=== PATIENT | female | born 1935 | race Caucasian/White ===

== ENCOUNTER → 2016-04-25 | Outpatient (CLI) | payer OTHER ==
[~2016-04-25] MED LIST: ATOR20TA PO; LEVO112T35 PO; LISI-275 PO
== END | disposition home or self-care (01) ==
LOC: LAB 09:52
PROVIDERS: ATTEND Internal Medicine
DX: E05.90 Thyrotoxicosis, unspecified without thyrotoxic crisis or storm (principal)
CPT/HCPCS: 36415; 84443

== ENCOUNTER → 2016-05-18 | Day surgery (SDC) | payer OTHER ==
[2016-05-15 13:16] LABS: Basophils # (auto) 0 uL; Basophils % (auto) 0.3 % (0.0-2.0); Eosinophils # (auto) 0.1 uL; Eosinophils % (auto) 1.1 % (0.0-7.0); Hematocrit 43.1 % (36.0-46.0); Hemoglobin 13.9 g/dL (12.2-16.2); Lymphocytes # (auto) 2.4 uL; Lymphocytes % (auto) 29.6 % (10.0-50.0); Mean Corpuscular Hemoglobin 29.8 pg (28.0-32.0); Mean Corpuscular Hgb Conc. 32.3 g/dL (32.0-36.0); Mean Corpuscular Volume 92.1 fL (80.0-100.0); Mean Platelet Volume 9.1 fL (7.4-10.4); Monocytes # (auto) 0.8 uL; Monocytes % (auto) 9.8 % (0.0-12.0); Neutrophils # (auto) 4.8 uL; Neutrophils % (auto) 59.2 % (37.0-80.0); Platelet Count (auto) 342 10^3/uL (140-450); Red Cell Distribution Width 12.9 % (11.6-16.0); White Blood Cell 8.1 10^3/uL (4.4-10.8)
[2016-05-15 13:34] LABS: INR 1.02 (0.9-1.15); Partial Thromboplastin Time 27.1 sec (22.64-33.71); Prothrombin Time 10.5 sec (9.37-12.3)
[~2016-05-18] VITALS: Ht 162.6 cm; Wt 59.9 kg
[~2016-05-18] MED LIST changes: +ALEN70TA56 OR; -LEVO112T35 PO; +LEVO88TA36 PO; +LIOT5TAB9 PO; +SODIUM CHLORIDE LOCK 10 ML ONE; +diphenhdrAMINE HCL 50 MG/1 ML VL ONE
[2016-05-18] MEDS: MIDAZOLAM HCL 5 MG/ML-1ML VIAL ONE ×4 (10:02→10:12)
[2016-05-18] MEDS: fentaNYL CITRATE 100 MCG/2 ML VL ONE ×4 (10:02→10:12)
[2016-05-18 11:00] VITALS: BP 138/67
== END | disposition home or self-care (01) ==
LOC: GI 08:20
PROVIDERS: ATTEND Internal Medicine Gastroenterology
DX: Z12.11 Encounter for screening for malignant neoplasm of colon (principal); K57.30 Diverticulosis of large intestine without perforation or abscess without bleeding; I20.9 Angina pectoris, unspecified; D21.9 Benign neoplasm of connective and other soft tissue, unspecified; F41.9 Anxiety disorder, unspecified; F32.9 Major depressive disorder, single episode, unspecified
CPT/HCPCS: 36415; 45378; 85025; 85049; 85610; 85730; J1200; J2250; J3010

== ENCOUNTER → 2016-06-06 | Outpatient (CLI) | payer OTHER ==
[~2016-06-06] VITALS: Ht 162.6 cm; Wt 59.0 kg
[~2016-06-06] MED LIST changes: +ADENOSINE 50 MG in GIVE UN-DILUTED 0 ML IV ONE; -SODIUM CHLORIDE LOCK 10 ML ONE; -diphenhdrAMINE HCL 50 MG/1 ML VL ONE
== END | disposition home or self-care (01) ==
LOC: XY 08:12
PROVIDERS: ATTEND Internal Medicine Cardiovascular Disease
DX: Z01.818 Encounter for other preprocedural examination (principal); I34.2 Nonrheumatic mitral (valve) stenosis; I35.0 Nonrheumatic aortic (valve) stenosis; I31.3 Pericardial effusion (noninflammatory); I27.0 Primary pulmonary hypertension; I07.1 Rheumatic tricuspid insufficiency
CPT/HCPCS: 78452; 93017; 93306; A9500; J0153

== ENCOUNTER 2016-08-29 06:10 | Inpatient (IN) | payer OTHER ==
[2016-08-24 14:19] LABS: Basophils # (auto) 0 uL; Basophils % (auto) 0.4 % (0.0-2.0); Eosinophils # (auto) 0.1 uL; Eosinophils % (auto) 0.7 % (0.0-7.0); Hematocrit 41.8 % (36.0-46.0); Hemoglobin 13.6 g/dL (12.2-16.2); Lymphocytes # (auto) 2.4 uL; Lymphocytes % (auto) 27.8 % (10.0-50.0); Mean Corpuscular Hemoglobin 29.9 pg (28.0-32.0); Mean Corpuscular Hgb Conc. 32.6 g/dL (32.0-36.0); Mean Corpuscular Volume 91.7 fL (80.0-100.0); Mean Platelet Volume 8.8 fL (7.4-10.4); Monocytes # (auto) 0.7 uL; Monocytes % (auto) 7.6 % (0.0-12.0); Neutrophils # (auto) 5.5 uL; Neutrophils % (auto) 63.5 % (37.0-80.0); Platelet Count (auto) 303 10^3/uL (140-450); Red Cell Distribution Width 13.6 % (11.6-16.0); White Blood Cell 8.7 10^3/uL (4.4-10.8)
[2016-08-24 14:29] LABS: Urine Bilirubin Negative (Negative); Urine Blood Negative /uL (Negative); Urine Color Yellow (Yellow); Urine Glucose Normal (Normal); Urine Ketone Negative (Negative); Urine Mucus FEW (None Seen); Urine Nitrite Negative (Negative); Urine RBC 1 /hpf (0 - 4); Urine Squamous Epithelial Cell FEW /hpf (<5); Urine pH 5.5 (5.0-8.0)
[2016-08-24 14:41] LABS: INR 0.94 (0.9-1.15); Partial Thromboplastin Time 26.3 sec (22.64-33.71); Prothrombin Time 10.2 sec (9.37-12.3)
[2016-08-24 14:50] LABS: Albumin 3.3 g/dL (3.4-5.0); BUN/Creatinine Ratio 19.7; Bilirubin, Total 0.4 mg/dL (0.2-1.0); Calcium 8.9 mg/dL (8.5-10.1); Potassium 3.8 mmol/L (3.5-5.1); Total Protein 6.9 g/dL (6.4-8.2)
[~2016-08-29] VITALS: Ht 162.6 cm; Wt 152.8 kg
[~2016-08-29 06:10] MED LIST changes: -ADENOSINE 50 MG in GIVE UN-DILUTED 0 ML IV ONE; -ALEN70TA56 OR
[2016-08-29] MEDS ORDERED: ceFAZolin 1GM/50ML D5W 100 ML IV ONE (06:23)
[2016-08-29] MEDS ORDERED: TETRACAINE 1% INJ 2 ML VIAL IJ ONE (07:11)
[2016-08-29] MEDS ORDERED: MORPHINE SULF(PF) 0.5MG/ML 10ML VIAL ONE (07:22)
[2016-08-29] MEDS ORDERED: fentaNYL CITRATE 100 MCG/2 ML VL ONE (07:23)
[2016-08-29] MEDS ORDERED: MIDAZOLAM HCL 1MG/1ML-2 ML VIAL ONE ×2 (07:23→08:37)
[2016-08-29] MEDS ORDERED: DEXAMETHASONE SOD PHOS 10MG/1ML VIAL INJ IV PRN (08:00)
[2016-08-29] MEDS ORDERED: NALOXONE HCL 0.4 MG/ML VIAL IV PRN (08:00)
[2016-08-29] MEDS ORDERED: KETOROLAC TROMETH 30 MG/ML 1ML VIAL IV PRN (08:00)
[2016-08-29] MEDS ORDERED: LABETALOL HCL 5 MG/ML 4ML SYRINGE IV PRN (08:00)
[2016-08-29] MEDS ORDERED: HYDROmorphone HCL 2 MG/ML VL IV PRN ×2 (08:00)
[2016-08-29] MEDS ORDERED: MIDAZOLAM HCL 1MG/1ML-2 ML VIAL IV PRN (08:00)
[2016-08-29] MEDS ORDERED: ePHEDrine SULFATE 50 MG/ML AMP IV PRN (08:00)
[2016-08-29] MEDS ORDERED: KETOROLAC TROMETH 30 MG/ML 1ML VIAL IV ONE (08:00)
[2016-08-29] MEDS ORDERED: diphenhdrAMINE HCL 50 MG/1 ML VL IV PRN (08:00)
[2016-08-29] MEDS ORDERED: NALBUPHINE HCL 10 MG/1ml INJECTION SUBCUT ONE (08:00)
[2016-08-29] MEDS ORDERED: MORPHINE SULF INJ 2 MG/ML SYRINGE 1ML IV PRN ×2 (08:00→10:30)
[2016-08-29] MEDS ORDERED: PROPOFOL 10 MG/ML 20 ML IV ONE (08:15)
[2016-08-29] MEDS ORDERED: diphenhdrAMINE HCL 50 MG/1 ML VL ONE (09:02)
[2016-08-29] MEDS ORDERED: PHENYLEPHRINE HCL 10 MG/ML VL ONE (09:02)
[2016-08-29] MEDS ORDERED: ACETAMINOPHEN 325 MG TAB PO PRN (10:30)
[2016-08-29] MEDS ORDERED: NITROGLYCERIN 0.4 MG SL TAB SL PRN (10:30)
[2016-08-29] MEDS ORDERED: TEMAZEPAM 15 MG CAP PO PRN (10:30)
[2016-08-29] MEDS: oxyCODONE ER 10 MG TAB PO SCH ×2 (11:00→21:56)
[2016-08-29] MEDS: LACTATED RINGER'S 1,000 ML IV SCH (11:45)
[2016-08-29] MEDS: ceFAZolin 1GM/50ML D5W 50 ML IV SCH ×2 (11:48→17:09)
[2016-08-29 12:20] VITALS: BP 107/49
[2016-08-29 12:30] VITALS: BP 107/49
[2016-08-29] MEDS: DOCUSATE SOD 100 MG CAP PO SCH ×2 (12:58→21:56)
[2016-08-29] MEDS: SODIUM CHLOR 0.9% PF (SALINE LOCK) 10ML VIAL IV SCH ×2 (12:59→21:45)
[2016-08-29 16:57] VITALS: BP 114/62
[2016-08-29] MEDS: HYDROmorphone HCL 2 MG/ML VL IV PRN (17:08)
[2016-08-29 21:43] VITALS: BP 135/71
[2016-08-30] VITALS (7 sets, daily range): BP systolic 104–122; BP diastolic 44–68
[2016-08-30] MEDS: ceFAZolin 1GM/50ML D5W 50 ML IV SCH (02:10)
[2016-08-30] MEDS: SODIUM CHLOR 0.9% PF (SALINE LOCK) 10ML VIAL IV SCH ×3 (05:36→21:45)
[2016-08-30] MEDS: LACTATED RINGER'S 1,000 ML IV SCH (05:50)
[2016-08-30 08:20] LABS: Hematocrit 32.8 % (36.0-46.0); Hemoglobin 11.1 g/dL (12.2-16.2)
[2016-08-30] MEDS: HYDROmorphone HCL 2 MG/ML VL IV PRN ×3 (09:02→19:57)
[2016-08-30] MEDS: ENOXAPARIN SOD 40 MG/0.4 ML SYRINGE SC SCH (09:05)
[2016-08-30] MEDS: DOCUSATE SOD 100 MG CAP PO SCH ×2 (09:05→21:45)
[2016-08-30] MEDS: oxyCODONE ER 10 MG TAB PO SCH ×2 (10:05→21:49)
[2016-08-30] MEDS: ONDANSETRON HCL 4 MG/2 ML VIAL IV PRN ×2 (11:01→16:23)
[2016-08-30] MEDS ORDERED: LISINOPRIL 5 MG TAB PO ONE (12:15)
[2016-08-30] MEDS ORDERED: LEVOTHYROXINE SODIUM 88 MCG TAB PO ONE (12:15)
[2016-08-31] MEDS: LACTATED RINGER'S 1,000 ML IV SCH ×2 (02:19→13:56)
[2016-08-31] MEDS: ONDANSETRON HCL 4 MG/2 ML VIAL IV PRN ×4 (03:28→21:03)
[2016-08-31] MEDS: HYDROmorphone HCL 2 MG/ML VL IV PRN ×2 (03:28→10:01)
[2016-08-31 05:00] VITALS: BP 97/52
[2016-08-31] MEDS: SODIUM CHLOR 0.9% PF (SALINE LOCK) 10ML VIAL IV SCH ×3 (06:28→20:59)
[2016-08-31] MEDS: LEVOTHYROXINE SODIUM 88 MCG TAB PO SCH (06:46)
[2016-08-31 07:26] LABS: Hematocrit 30.5 % (36.0-46.0); Hemoglobin 10.2 g/dL (12.2-16.2)
[2016-08-31 08:31] VITALS: BP 106/59
[2016-08-31] MEDS: LISINOPRIL 5 MG TAB PO SCH (11:31)
[2016-08-31] MEDS: oxyCODONE ER 10 MG TAB PO SCH ×2 (11:32→21:03)
[2016-08-31] MEDS: DOCUSATE SOD 100 MG CAP PO SCH ×2 (11:32→21:00)
[2016-08-31] MEDS: ENOXAPARIN SOD 40 MG/0.4 ML SYRINGE SC SCH (11:33)
[2016-08-31 12:46] VITALS: BP 109/57
[2016-08-31 16:52] VITALS: BP 118/52
[2016-08-31 20:00] VITALS: BP 111/55
[2016-08-31 22:00] VITALS: BP 111/55
[2016-09-01] MEDS: ONDANSETRON HCL 4 MG/2 ML VIAL IV PRN ×3 (05:07→21:15)
[2016-09-01] MEDS: SODIUM CHLOR 0.9% PF (SALINE LOCK) 10ML VIAL IV SCH ×3 (05:07→21:14)
[2016-09-01] MEDS: HYDROmorphone HCL 2 MG/ML VL IV PRN ×2 (05:08→19:46)
[2016-09-01 05:30] VITALS: BP 113/59
[2016-09-01] MEDS: LEVOTHYROXINE SODIUM 88 MCG TAB PO SCH (06:55)
[2016-09-01 08:12] LABS: Hematocrit 32.4 % (36.0-46.0); Hemoglobin 10.9 g/dL (12.2-16.2)
[2016-09-01 08:45] VITALS: BP 94/38
[2016-09-01] MEDS: oxyCODONE ER 10 MG TAB PO SCH ×2 (09:48→21:15)
[2016-09-01] MEDS: DOCUSATE SOD 100 MG CAP PO SCH ×2 (09:49→21:15)
[2016-09-01] MEDS: ENOXAPARIN SOD 40 MG/0.4 ML SYRINGE SC SCH (09:49)
[2016-09-01] MEDS: LISINOPRIL 5 MG TAB PO SCH (09:53)
[2016-09-01] MEDS: LACTATED RINGER'S 1,000 ML IV SCH (14:13)
[2016-09-01 17:04] VITALS: BP 111/55
[2016-09-01 20:00] VITALS: BP 142/70
[2016-09-01 22:00] VITALS: BP 142/70
[2016-09-02] VITALS (7 sets, daily range): BP systolic 106–132; BP diastolic 52–73
[2016-09-02] MEDS: HYDROmorphone HCL 2 MG/ML VL IV PRN (05:37)
[2016-09-02] MEDS: LEVOTHYROXINE SODIUM 88 MCG TAB PO SCH (06:00)
[2016-09-02] MEDS: SODIUM CHLOR 0.9% PF (SALINE LOCK) 10ML VIAL IV SCH ×3 (06:00→21:59)
[2016-09-02 07:27] LABS: Hematocrit 30.1 % (36.0-46.0); Hemoglobin 10.1 g/dL (12.2-16.2)
[2016-09-02] MEDS: DOCUSATE SOD 100 MG CAP PO SCH ×2 (09:45→21:59)
[2016-09-02] MEDS: oxyCODONE ER 10 MG TAB PO SCH ×2 (09:45→21:59)
[2016-09-02] MEDS: ENOXAPARIN SOD 40 MG/0.4 ML SYRINGE SC SCH (09:45)
[2016-09-02] MEDS: LISINOPRIL 5 MG TAB PO SCH (09:46)
[2016-09-02] MEDS ORDERED: BISACODYL 5 MG EC TAB PO ONE (12:00)
[2016-09-02] MEDS: LACTULOSE 20Gm/30ML SOLN PO SCH ×2 (18:23→23:34)
[2016-09-02] MEDS: HYDROcodone-ACET 10/325MG TAB PO PRN (21:00)
[2016-09-03] VITALS (7 sets, daily range): BP systolic 99–134; BP diastolic 58–75
[2016-09-03] MEDS: LACTULOSE 20Gm/30ML SOLN PO SCH ×3 (06:00→18:00)
[2016-09-03] MEDS: LEVOTHYROXINE SODIUM 88 MCG TAB PO SCH (06:55)
[2016-09-03] MEDS: SODIUM CHLOR 0.9% PF (SALINE LOCK) 10ML VIAL IV SCH ×3 (06:55→22:32)
[2016-09-03] MEDS: ENOXAPARIN SOD 40 MG/0.4 ML SYRINGE SC SCH (09:28)
[2016-09-03] MEDS: oxyCODONE ER 10 MG TAB PO SCH ×2 (09:28→22:00)
[2016-09-03] MEDS: DOCUSATE SOD 100 MG CAP PO SCH ×2 (09:29→22:32)
[2016-09-03] MEDS: LISINOPRIL 5 MG TAB PO SCH (09:29)
[2016-09-03] MEDS: HYDROcodone-ACET 10/325MG TAB PO PRN (20:32)
[2016-09-04 05:00] VITALS: BP 135/72
[2016-09-04] MEDS: SODIUM CHLOR 0.9% PF (SALINE LOCK) 10ML VIAL IV SCH ×2 (05:43→14:24)
[2016-09-04] MEDS: LACTULOSE 20Gm/30ML SOLN PO SCH ×4 (05:43→18:00)
[2016-09-04] MEDS: LEVOTHYROXINE SODIUM 88 MCG TAB PO SCH (06:16)
[2016-09-04 08:00] VITALS: BP 156/80
[2016-09-04 08:23] VITALS: BP 156/80
[2016-09-04] MEDS: oxyCODONE ER 10 MG TAB PO SCH (10:33)
[2016-09-04] MEDS: DOCUSATE SOD 100 MG CAP PO SCH (10:33)
[2016-09-04] MEDS: LISINOPRIL 5 MG TAB PO SCH (10:33)
[2016-09-04] MEDS: ENOXAPARIN SOD 40 MG/0.4 ML SYRINGE SC SCH (10:33)
[2016-09-04 13:00] VITALS: BP 118/48
[2016-09-04 13:28] VITALS: BP 118/98
[2016-09-04] MEDS: HYDROcodone-ACET 10/325MG TAB PO PRN (15:35)
[2016-09-04] MEDS ORDERED: CALCIUM W/VIT D (600MG/400IU) TAB PO SCH (18:00)
== END 2016-09-04 19:30 | DRG 470 ==
LOC: SUR 06:10 → CENTRAL 06:11 → TELE-CENTR 12:36
PROVIDERS: ADMIT Orthopaedic Surgery; ATTEND Internal Medicine
PROC: 0MBL0ZZ Excision of Right Hip Bursa and Ligament, Open Approach (ICD-10-PCS; 2016-08-29)
PROC: 0SR90JA Replacement of Right Hip Joint with Synthetic Substitute, Uncemented, Open Approach (ICD-10-PCS; principal; 2016-08-29 07:47)
DX: M16.11 Unilateral primary osteoarthritis, right hip (principal); I10 Essential (primary) hypertension; E78.5 Hyperlipidemia, unspecified; M48.00 Spinal stenosis, site unspecified; E03.9 Hypothyroidism, unspecified; M81.0 Age-related osteoporosis without current pathological fracture; M70.71 Other bursitis of hip, right hip; Y93.89 Activity, other specified; Z90.89 Acquired absence of other organs
CPT/HCPCS: 36415; 73501; 80053; 81001; 85014; 85018; 85025; 85610; 85730; 86850; 86900; 86901; 97110; 97116; 97530; J0690; J2250; J2405; J2704

== ENCOUNTER → 2016-10-23 | Outpatient (CLI) | payer OTHER ==
[2016-10-23 07:51] LABS: Basophils # (auto) 0 uL; Basophils % (auto) 0.5 % (0.0-2.0); CONDITION Y; Eosinophils # (auto) 0.1 uL; Hematocrit 41.5 % (36.0-46.0); Hemoglobin 13.9 g/dL (12.2-16.2); Lymphocytes # (auto) 2.7 uL; Lymphocytes % (auto) 37.6 % (10.0-50.0); Mean Corpuscular Hemoglobin 30.7 pg (28.0-32.0); Mean Corpuscular Hgb Conc. 33.4 g/dL (32.0-36.0); Mean Corpuscular Volume 91.9 fL (80.0-100.0); Mean Platelet Volume 8.4 fL (7.4-10.4); Monocytes # (auto) 0.7 uL; Monocytes % (auto) 9.8 % (0.0-12.0); Neutrophils # (auto) 3.6 uL; Neutrophils % (auto) 50.1 % (37.0-80.0); Platelet Count (auto) 383 10^3/uL (140-450); Red Cell Distribution Width 13.9 % (11.6-16.0); White Blood Cell 7.2 10^3/uL (4.4-10.8)
[2016-10-23 07:57] LABS: Urine Bilirubin Negative (Negative); Urine Blood Negative /uL (Negative); Urine Color Yellow (Yellow); Urine Glucose Normal (Normal); Urine Ketone Negative (Negative); Urine Nitrite Negative (Negative); Urine RBC 1 /hpf (0 - 4); Urine Squamous Epithelial Cell FEW /hpf (<5); Urine Urobilinogen Normal (Negative)
[2016-10-23 08:29] LABS: Albumin 3.5 g/dL (3.4-5.0); BUN/Creatinine Ratio 17.1; Bilirubin, Total 0.4 mg/dL (0.2-1.0); Total Protein 6.7 g/dL (6.4-8.2)
== END | disposition home or self-care (01) ==
LOC: LAB 06:42
PROVIDERS: ATTEND Internal Medicine
DX: G03.9 Meningitis, unspecified (principal); I10 Essential (primary) hypertension; E78.4 Other hyperlipidemia; E55.9 Vitamin D deficiency, unspecified
CPT/HCPCS: 36415; 80053; 80061; 81001; 82306; 83036; 84439; 84443; 84481; 85025

== ENCOUNTER → 2017-05-24 | Outpatient (CLI) | payer OTHER ==
[2017-05-24 08:01] LABS: Basophils # (auto) 0 uL; Basophils % (auto) 0.4 % (0.0-2.0); Eosinophils # (auto) 0.1 uL; Eosinophils % (auto) 1.9 % (0.0-7.0); Hematocrit 42.9 % (36.0-46.0); Hemoglobin 14.3 g/dL (12.2-16.2); Lymphocytes # (auto) 2.1 uL; Mean Corpuscular Hemoglobin 30.6 pg (28.0-32.0); Mean Corpuscular Hgb Conc. 33.3 g/dL (32.0-36.0); Monocytes # (auto) 0.6 uL; Monocytes % (auto) 10.2 % (0.0-12.0); Neutrophils # (auto) 3.2 uL; Neutrophils % (auto) 52.5 % (37.0-80.0); Nucleated Red Blood Cells % 0.1 %; Platelet Count (auto) 303 10^3/uL (140-450); Red Blood Cells 4.66 10^6/uL (4.0-5.20); Red Cell Distribution Width 13.8 % (11.8-14.3); White Blood Cell 6.1 10^3/uL (4.4-10.8)
[2017-05-24 08:21] LABS: Albumin 3.5 g/dL (3.4-5.0); BUN/Creatinine Ratio 13.9; Bilirubin, Total 0.4 mg/dL (0.2-1.0); Calcium 9.2 mg/dL (8.5-10.1); Potassium 4.1 mmol/L (3.5-5.1); Total Protein 7.2 g/dL (6.4-8.2)
[2017-05-24 08:22] LABS: Free T4 (Free Thyroxine) 1.27 ng/dL (0.89-1.76)
[2017-05-24 08:23] LABS: T3 Total 1.34 ng/mL (0.60-1.81)
== END | disposition home or self-care (01) ==
LOC: LAB 06:37
PROVIDERS: ATTEND Physician Assistant
DX: I10 Essential (primary) hypertension (principal); E03.9 Hypothyroidism, unspecified; M81.0 Age-related osteoporosis without current pathological fracture; E78.5 Hyperlipidemia, unspecified
CPT/HCPCS: 36415; 80053; 80061; 84439; 84443; 84480; 85025

== ENCOUNTER → 2017-06-19 | Outpatient (CLI) | payer OTHER ==
[2017-06-19 09:18] LABS: Urine WBC None Seen /hpf (0 - 5)
[2017-06-19 09:31] LABS: Basophils # (auto) 0 uL; Basophils % (auto) 0.5 % (0.0-2.0); Eosinophils # (auto) 0.1 uL; Eosinophils % (auto) 1.6 % (0.0-7.0); Lymphocytes # (auto) 2.1 uL; Lymphocytes % (auto) 33.9 % (10.0-50.0); Mean Corpuscular Hemoglobin 30.8 pg (28.0-32.0); Mean Corpuscular Hgb Conc. 33.4 g/dL (32.0-36.0); Mean Corpuscular Volume 92.2 fL (80.0-100.0); Monocytes # (auto) 0.8 uL; Neutrophils # (auto) 3.3 uL; Platelet Count (auto) 306 10^3/uL (140-450); Red Blood Cells 4.88 10^6/uL (4.0-5.20); Red Cell Distribution Width 13.2 % (11.8-14.3); White Blood Cell 6.3 10^3/uL (4.4-10.8)
[2017-06-19 09:33] LABS: Urine Bacteria NONE SEEN /hpf (None Seen); Urine Blood Negative /uL (Negative); Urine Specific Gravity 1.007 (1.001-1.035)
[2017-06-19 09:34] LABS: INR 0.92 (0.9-1.15); Partial Thromboplastin Time 26.4 sec (22.64-33.71)
[2017-06-19 11:25] LABS: Albumin 3.5 g/dL (3.4-5.0); BUN/Creatinine Ratio 14.3; Bilirubin, Total 0.5 mg/dL (0.2-1.0); Potassium 4.4 mmol/L (3.5-5.1); Total Protein 7.4 g/dL (6.4-8.2)
== END | disposition home or self-care (01) ==
LOC: LAB 08:11
DX: H25.12 Age-related nuclear cataract, left eye (principal)
CPT/HCPCS: 36415; 80053; 81001; 85025; 85610; 85730

== ENCOUNTER 2017-09-18 06:17 | Inpatient (IN) | payer OTHER ==
[2017-09-14 14:08] LABS: Basophils # (auto) 0 uL; Basophils % (auto) 0.3 % (0.0-2.0); Eosinophils # (auto) 0.1 uL; Eosinophils % (auto) 1.1 % (0.0-7.0); Hematocrit 43.1 % (36.0-46.0); Hemoglobin 14.3 g/dL (12.2-16.2); Lymphocytes # (auto) 2.4 uL; Lymphocytes % (auto) 29.7 % (10.0-50.0); Mean Corpuscular Hemoglobin 30.5 pg (28.0-32.0); Mean Corpuscular Hgb Conc. 33.1 g/dL (32.0-36.0); Mean Corpuscular Volume 92.2 fL (80.0-100.0); Monocytes # (auto) 0.7 uL; Monocytes % (auto) 8.5 % (0.0-12.0); Neutrophils # (auto) 4.9 uL; Neutrophils % (auto) 60.4 % (37.0-80.0); Nucleated Red Blood Cells % 0.1 %; Platelet Count (auto) 308 10^3/uL (140-450); Red Blood Cells 4.68 10^6/uL (4.0-5.20); Red Cell Distribution Width 12.7 % (11.8-14.3); White Blood Cell 8.2 10^3/uL (4.4-10.8)
[2017-09-14 14:17] LABS: Urine Bacteria NONE SEEN /hpf (None Seen); Urine Blood Negative /uL (Negative); Urine Specific Gravity 1.007 (1.001-1.035); Urine WBC 1 /hpf (0 - 5)
[2017-09-14 14:21] LABS: INR 0.93 (0.9-1.15); Partial Thromboplastin Time 26.4 sec (23.78-33.04)
[2017-09-14 14:25] LABS: Albumin 3.6 g/dL (3.4-5.0); Bilirubin, Total 0.3 mg/dL (0.2-1.0); Calcium 9.3 mg/dL (8.5-10.1); Potassium 4.4 mmol/L (3.5-5.1); Total Protein 7.2 g/dL (6.4-8.2)
[~2017-09-18] VITALS: Ht 162.6 cm; Wt 72.4 kg
[2017-09-18] MEDS ORDERED: TETRACAINE 1% INJ 2 ML VIAL IJ ONE (07:14)
[2017-09-18] MEDS ORDERED: fentaNYL CITRATE 100 MCG/2 ML VL ONE (07:28)
[2017-09-18] MEDS ORDERED: MORPHINE SULF(PF) 0.5MG/ML 10ML VIAL ONE (07:28)
[2017-09-18] MEDS ORDERED: MIDAZOLAM HCL 1MG/1ML-2 ML VIAL ONE ×2 (07:28→07:50)
[2017-09-18] MEDS ORDERED: ceFAZolin 1GM/100ML 200 ML IV ONE (07:29)
[2017-09-18] MEDS ORDERED: PROPOFOL 10 MG/ML 20 ML IV ONE (07:50)
[2017-09-18] MEDS ORDERED: DEXAMETHASONE SOD PHOS 10MG/1ML VIAL INJ ONE (07:50)
[2017-09-18] MEDS ORDERED: MORPHINE SULFATE 8mg/ml INJ SDV IV PRN ×2 (08:30→11:00)
[2017-09-18] MEDS ORDERED: NALBUPHINE HCL 10 MG/1ml INJECTION SUBCUT ONE (08:30)
[2017-09-18] MEDS ORDERED: KETOROLAC TROMETH 30 MG/ML 1ML VIAL IV ONE (08:30)
[2017-09-18] MEDS ORDERED: HYDROmorphone HCL 2 MG/ML VL IV PRN ×2 (08:30)
[2017-09-18] MEDS ORDERED: MIDAZOLAM HCL 1MG/1ML-2 ML VIAL IV PRN (08:30)
[2017-09-18] MEDS ORDERED: diphenhdrAMINE HCL 50 MG/1 ML VL IV PRN (08:30)
[2017-09-18] MEDS ORDERED: NALOXONE HCL 0.4 MG/ML VIAL IV PRN (08:30)
[2017-09-18] MEDS ORDERED: ePHEDrine SULFATE 50 MG/ML AMP IV PRN (08:30)
[2017-09-18] MEDS ORDERED: DEXAMETHASONE SOD PHOS 10MG/1ML VIAL INJ IV PRN (08:30)
[2017-09-18] MEDS ORDERED: KETOROLAC TROMETH 30 MG/ML 1ML VIAL IV PRN (08:30)
[2017-09-18] MEDS ORDERED: LABETALOL HCL 5 MG/ML 4ML SYRINGE IV PRN (08:30)
[2017-09-18] MEDS ORDERED: PHENYLEPHRINE HCL 10 MG/ML VL ONE (08:31)
[2017-09-18] MEDS ORDERED: MORPHINE SULFATE 8mg/ml INJ SDV IV ONE (10:00)
[2017-09-18] MEDS ORDERED: NITROGLYCERIN 0.4 MG SL TAB SL PRN (11:00)
[2017-09-18 13:00] VITALS: BP 95/47
[2017-09-18] MEDS: ceFAZolin 1GM/100ML 50 ML IV SCH ×3 (13:21→23:35)
[2017-09-18 17:33] VITALS: BP 120/65
[2017-09-18] MEDS ORDERED: LISINOPRIL 5 MG TAB PO ONE (18:30)
[2017-09-18] MEDS: LACTATED RINGER'S 1,000 ML IV SCH (18:35)
[2017-09-18] MEDS: SODIUM CHLOR 0.9% PF (SALINE LOCK) 10ML VIAL/SYR IV SCH ×2 (18:40→21:50)
[2017-09-18] MEDS: oxyCODONE ER 10 MG TAB PO SCH (21:49)
[2017-09-18] MEDS: DOCUSATE SOD 100 MG CAP PO SCH (21:49)
[2017-09-18 22:00] VITALS: BP 115/75
[2017-09-18] MEDS: ACETAMINOPHEN 325 MG TAB PO PRN (22:53)
[2017-09-19] MEDS: TEMAZEPAM 15 MG CAP PO PRN (00:45)
[2017-09-19 04:00] VITALS: BP 122/73
[2017-09-19] MEDS: SODIUM CHLOR 0.9% PF (SALINE LOCK) 10ML VIAL/SYR IV SCH ×3 (06:01→21:55)
[2017-09-19] MEDS: LEVOTHYROXINE SODIUM 88 MCG TAB PO SCH (06:02)
[2017-09-19 06:21] LABS: Hematocrit 33.2 % (36.0-46.0); Hemoglobin 11.1 g/dL (12.2-16.2)
[2017-09-19] MEDS: LACTATED RINGER'S 1,000 ML IV SCH (06:50)
[2017-09-19 08:00] VITALS: BP 111/63
[2017-09-19 09:00] VITALS: BP 111/63
[2017-09-19] MEDS ORDERED: ONDANSETRON ODT 4 MG TAB PO PRN (09:15)
[2017-09-19] MEDS ORDERED: ONDANSETRON HCL 4 MG/2 ML VIAL IV PRN (09:15)
[2017-09-19] MEDS: DOCUSATE SOD 100 MG CAP PO SCH ×2 (09:23→21:56)
[2017-09-19] MEDS: oxyCODONE ER 10 MG TAB PO SCH ×2 (09:23→21:56)
[2017-09-19] MEDS: LISINOPRIL 5 MG TAB PO SCH (09:23)
[2017-09-19] MEDS: ENOXAPARIN SOD 60 MG/0.6 ML SYRINGE SC SCH (09:24)
[2017-09-19] MEDS: HYDROmorphone HCL 2 MG/ML VL IV PRN ×2 (11:18→15:09)
[2017-09-19 13:00] VITALS: BP 105/55
[2017-09-19 18:01] VITALS: BP 118/64
[2017-09-19] MEDS ORDERED: FAMOTIDINE (10MG/ML) 2ML VL IV ONE (18:30)
[2017-09-19] MEDS: ONDANSETRON HCL 4 MG/2 ML VIAL IV PRN (19:14)
[2017-09-19] MEDS: FAMOTIDINE (10MG/ML) 2ML VL IV SCH (21:55)
[2017-09-19 22:00] VITALS: BP 114/54
[2017-09-19] MEDS: HYDROcodone-ACET 10/325MG TAB PO PRN (23:44)
[2017-09-20] MEDS: LACTATED RINGER'S 1,000 ML IV SCH (02:50)
[2017-09-20 05:00] VITALS: BP 109/83
[2017-09-20] MEDS: LEVOTHYROXINE SODIUM 88 MCG TAB PO SCH (06:03)
[2017-09-20] MEDS: SODIUM CHLOR 0.9% PF (SALINE LOCK) 10ML VIAL/SYR IV SCH ×3 (06:03→21:40)
[2017-09-20 07:54] LABS: Hematocrit 32.7 % (36.0-46.0); Hemoglobin 10.9 g/dL (12.2-16.2)
[2017-09-20 08:00] VITALS: BP 106/56
[2017-09-20 09:04] VITALS: BP 106/56
[2017-09-20] MEDS: LISINOPRIL 5 MG TAB PO SCH (09:04)
[2017-09-20] MEDS: DOCUSATE SOD 100 MG CAP PO SCH ×2 (09:04→21:40)
[2017-09-20] MEDS: FAMOTIDINE (10MG/ML) 2ML VL IV SCH ×2 (09:04→21:39)
[2017-09-20] MEDS: ENOXAPARIN SOD 60 MG/0.6 ML SYRINGE SC SCH (09:05)
[2017-09-20] MEDS: ONDANSETRON HCL 4 MG/2 ML VIAL IV PRN (09:05)
[2017-09-20] MEDS: HYDROmorphone HCL 2 MG/ML VL IV PRN ×2 (09:06→17:43)
[2017-09-20] MEDS: oxyCODONE ER 10 MG TAB PO SCH ×2 (10:16→21:40)
[2017-09-20 12:50] VITALS: BP 102/59
[2017-09-20 17:00] VITALS: BP 128/52
[2017-09-20 22:00] VITALS: BP 137/64
[2017-09-20] MEDS: TEMAZEPAM 15 MG CAP PO PRN (22:41)
[2017-09-21 05:00] VITALS: BP 134/94
[2017-09-21] MEDS: LEVOTHYROXINE SODIUM 88 MCG TAB PO SCH (06:00)
[2017-09-21] MEDS: SODIUM CHLOR 0.9% PF (SALINE LOCK) 10ML VIAL/SYR IV SCH ×3 (06:00→22:14)
[2017-09-21] MEDS: HYDROcodone-ACET 10/325MG TAB PO PRN (07:34)
[2017-09-21 08:00] VITALS: BP 106/65
[2017-09-21 08:08] LABS: Hematocrit 32.1 % (36.0-46.0); Hemoglobin 10.8 g/dL (12.2-16.2)
[2017-09-21] MEDS: oxyCODONE ER 10 MG TAB PO SCH ×2 (11:10→21:49)
[2017-09-21] MEDS: LISINOPRIL 5 MG TAB PO SCH (11:10)
[2017-09-21] MEDS: DOCUSATE SOD 100 MG CAP PO SCH ×2 (11:10→21:48)
[2017-09-21] MEDS: FAMOTIDINE (10MG/ML) 2ML VL IV SCH ×2 (11:11→21:49)
[2017-09-21] MEDS: ENOXAPARIN SOD 60 MG/0.6 ML SYRINGE SC SCH (11:11)
[2017-09-21 12:00] VITALS: BP 118/66
[2017-09-21 17:00] VITALS: BP 104/57
[2017-09-21 21:06] VITALS: BP 115/72
[2017-09-21] MEDS: TEMAZEPAM 15 MG CAP PO PRN (22:07)
[2017-09-22] MEDS: HYDROcodone-ACET 10/325MG TAB PO PRN ×2 (02:16→19:52)
[2017-09-22 05:44] VITALS: BP 106/54
[2017-09-22] MEDS: SODIUM CHLOR 0.9% PF (SALINE LOCK) 10ML VIAL/SYR IV SCH ×3 (06:45→21:09)
[2017-09-22] MEDS: LEVOTHYROXINE SODIUM 88 MCG TAB PO SCH (06:45)
[2017-09-22 08:00] VITALS: BP 113/66
[2017-09-22 08:31] LABS: Hematocrit 30.7 % (36.0-46.0); Hemoglobin 10.5 g/dL (12.2-16.2)
[2017-09-22 09:00] VITALS: BP 113/66
[2017-09-22] MEDS: FAMOTIDINE (10MG/ML) 2ML VL IV SCH (09:35)
[2017-09-22] MEDS: LISINOPRIL 5 MG TAB PO SCH (09:35)
[2017-09-22] MEDS: oxyCODONE ER 10 MG TAB PO SCH ×2 (09:35→21:09)
[2017-09-22] MEDS: DOCUSATE SOD 100 MG CAP PO SCH ×2 (09:35→21:08)
[2017-09-22] MEDS: ENOXAPARIN SOD 60 MG/0.6 ML SYRINGE SC SCH (09:36)
[2017-09-22] MEDS ORDERED: HYDROmorphone HCL 2 MG/ML VL IV PRN (11:45)
[2017-09-22] MEDS ORDERED: LACTULOSE 20Gm/30ML SOLN PO ONE (11:45)
[2017-09-22 13:00] VITALS: BP 118/58
[2017-09-22 16:57] VITALS: BP 120/55
[2017-09-22] MEDS: ACETAMINOPHEN 325 MG TAB PO PRN (21:08)
[2017-09-22] MEDS: TEMAZEPAM 15 MG CAP PO PRN (21:09)
[2017-09-22 22:21] VITALS: BP 113/59
[2017-09-23] MEDS: LEVOTHYROXINE SODIUM 88 MCG TAB PO SCH (05:50)
[2017-09-23] MEDS: SODIUM CHLOR 0.9% PF (SALINE LOCK) 10ML VIAL/SYR IV SCH ×3 (05:50→20:25)
[2017-09-23 05:57] VITALS: BP 118/59
[2017-09-23 09:00] VITALS: BP 100/69
[2017-09-23] MEDS: DOCUSATE SOD 100 MG CAP PO SCH ×2 (09:44→20:26)
[2017-09-23] MEDS: oxyCODONE ER 10 MG TAB PO SCH ×2 (09:45→20:26)
[2017-09-23] MEDS: ENOXAPARIN SOD 60 MG/0.6 ML SYRINGE SC SCH (09:45)
[2017-09-23] MEDS ORDERED: ACETAMINOPHEN 650 mg PER 20 mL UD PO PRN (11:15)
[2017-09-23 13:00] VITALS: BP 124/59
[2017-09-23 16:45] VITALS: BP 118/72
[2017-09-23] MEDS: TEMAZEPAM 15 MG CAP PO PRN (20:25)
[2017-09-23 22:00] VITALS: BP 132/61
[2017-09-24 05:00] VITALS: BP 135/68
[2017-09-24 05:58] LABS: Basophils # (auto) 0 uL; Basophils % (auto) 0.2 % (0.0-2.0); Eosinophils # (auto) 0.1 uL; Eosinophils % (auto) 1.8 % (0.0-7.0); Hematocrit 31.1 % (36.0-46.0); Hemoglobin 10.7 g/dL (12.2-16.2); Lymphocytes # (auto) 1.4 uL; Lymphocytes % (auto) 23.7 % (10.0-50.0); Mean Corpuscular Hemoglobin 31.1 pg (28.0-32.0); Mean Corpuscular Hgb Conc. 34.4 g/dL (32.0-36.0); Mean Corpuscular Volume 90.4 fL (80.0-100.0); Monocytes # (auto) 0.9 uL; Monocytes % (auto) 15.3 % (0.0-12.0); Neutrophils # (auto) 3.5 uL; Platelet Count (auto) 313 10^3/uL (140-450); Red Blood Cells 3.44 10^6/uL (4.0-5.20); Red Cell Distribution Width 12.3 % (11.8-14.3); White Blood Cell 5.9 10^3/uL (4.4-10.8)
[2017-09-24 06:19] LABS: Calcium 8.3 mg/dL (8.5-10.1)
[2017-09-24 06:23] LABS: BUN/Creatinine Ratio 16.3
[2017-09-24] MEDS: LEVOTHYROXINE SODIUM 88 MCG TAB PO SCH (06:29)
[2017-09-24] MEDS: SODIUM CHLOR 0.9% PF (SALINE LOCK) 10ML VIAL/SYR IV SCH ×2 (06:29→14:00)
[2017-09-24 08:58] VITALS: BP 128/71
[2017-09-24] MEDS: oxyCODONE ER 10 MG TAB PO SCH (10:00)
[2017-09-24] MEDS: DOCUSATE SOD 100 MG CAP PO SCH (10:18)
[2017-09-24] MEDS: ENOXAPARIN SOD 60 MG/0.6 ML SYRINGE SC SCH (10:18)
[2017-09-24 13:00] VITALS: BP 124/53
[2017-09-24 17:00] VITALS: BP 105/55
== END 2017-09-24 17:55 | disposition home health service (06) | DRG 470 ==
LOC: SUR 06:17 → EAST 06:18
PROVIDERS: ADMIT Orthopaedic Surgery; ATTEND Internal Medicine
PROC: 0SRB0JA Replacement of Left Hip Joint with Synthetic Substitute, Uncemented, Open Approach (ICD-10-PCS; principal; 2017-09-18 07:46)
DX: M16.12 Unilateral primary osteoarthritis, left hip (principal); J44.9 Chronic obstructive pulmonary disease, unspecified; E03.9 Hypothyroidism, unspecified; M70.62 Trochanteric bursitis, left hip; E78.5 Hyperlipidemia, unspecified; K57.90 Diverticulosis of intestine, part unspecified, without perforation or abscess without bleeding; I10 Essential (primary) hypertension; K59.00 Constipation, unspecified; G47.00 Insomnia, unspecified; Z79.899 Other long term (current) drug therapy; Z90.89 Acquired absence of other organs
CPT/HCPCS: 36415; 73501; 80048; 80053; 81001; 85014; 85018; 85025; 85610; 85730; 86850; 86900; 86901; 87081; 97110; 97116; 97163; A4565; J0690; J1100; J2250; J2405; J2704; J3490; Q0162

== ENCOUNTER → 2018-03-28 | Outpatient (CLI) | payer OTHER ==
[2018-03-28 09:23] LABS: Free T4 (Free Thyroxine) 1.78 ng/dL (0.89-1.76)
== END | disposition home or self-care (01) ==
LOC: LAB 07:08
PROVIDERS: ATTEND Physician Assistant
DX: E03.9 Hypothyroidism, unspecified (principal); E04.2 Nontoxic multinodular goiter
CPT/HCPCS: 36415; 84439; 84443; 84480

== ENCOUNTER → 2018-07-22 | Outpatient (CLI) | payer OTHER ==
[2018-07-22 08:35] LABS: Basophils # (auto) 0 uL; Basophils % (auto) 0.5 % (0.0-2.0); Eosinophils # (auto) 0.1 uL; Eosinophils % (auto) 2.4 % (0.0-7.0); Hematocrit 42.4 % (36.0-46.0); Hemoglobin 13.9 g/dL (12.2-16.2); Lymphocytes # (auto) 1.8 uL; Lymphocytes % (auto) 37.9 % (10.0-50.0); Mean Corpuscular Hgb Conc. 32.8 g/dL (32.0-36.0); Mean Corpuscular Volume 85.1 fL (80.0-100.0); Monocytes # (auto) 0.5 uL; Monocytes % (auto) 11.1 % (0.0-12.0); Neutrophils # (auto) 2.3 uL; Neutrophils % (auto) 48.1 % (37.0-80.0); Platelet Count (auto) 277 10^3/uL (140-450); Red Blood Cells 4.98 10^6/uL (4.0-5.20); Red Cell Distribution Width 14.7 % (11.8-14.3); White Blood Cell 4.8 10^3/uL (4.4-10.8)
[2018-07-22 08:43] LABS: Albumin 3.3 g/dL (3.4-5.0); Calcium 9.2 mg/dL (8.5-10.1); Potassium 4.5 mmol/L (3.5-5.1)
[2018-07-22 08:47] LABS: BUN/Creatinine Ratio 14.1; Bilirubin, Total 0.4 mg/dL (0.2-1.0); Total Protein 6.9 g/dL (6.4-8.2)
== END | disposition home or self-care (01) ==
LOC: LAB 07:56
PROVIDERS: ATTEND Physician Assistant
DX: I70.90 Unspecified atherosclerosis (principal); E78.5 Hyperlipidemia, unspecified; E03.9 Hypothyroidism, unspecified; I10 Essential (primary) hypertension; D64.9 Anemia, unspecified
CPT/HCPCS: 36415; 80053; 80061; 84443; 85025

== ENCOUNTER → 2019-02-03 | Outpatient (CLI) | payer OTHER ==
[2019-02-03 07:38] LABS: Basophils # (auto) 0 uL; Basophils % (auto) 0.4 % (0.0-2.0); Eosinophils # (auto) 0.1 uL; Hematocrit 43.6 % (36.0-46.0); Hemoglobin 14.5 g/dL (12.2-16.2); Lymphocytes # (auto) 2.3 uL; Mean Corpuscular Hemoglobin 29.8 pg (28.0-32.0); Mean Corpuscular Hgb Conc. 33.2 g/dL (32.0-36.0); Mean Corpuscular Volume 89.7 fL (80.0-100.0); Monocytes # (auto) 0.6 uL; Neutrophils # (auto) 3.2 uL; Neutrophils % (auto) 50.6 % (37.0-80.0); Nucleated Red Blood Cells % 0.1 %; Platelet Count (auto) 257 10^3/uL (140-450); Red Blood Cells 4.87 10^6/uL (4.0-5.20); Red Cell Distribution Width 13.8 % (11.8-14.3); White Blood Cell 6.3 10^3/uL (4.4-10.8)
[2019-02-03 09:00] LABS: Potassium 4.8 mmol/L (3.5-5.1)
[2019-02-03 09:09] LABS: Albumin 3.4 g/dL (3.4-5.0); BUN/Creatinine Ratio 11.7; Bilirubin, Total 0.5 mg/dL (0.2-1.0); Calcium 9.5 mg/dL (8.5-10.1); Total Protein 6.8 g/dL (6.4-8.2)
== END | disposition home or self-care (01) ==
LOC: LAB 07:08
PROVIDERS: ATTEND Internal Medicine
DX: E78.5 Hyperlipidemia, unspecified (principal); I27.0 Primary pulmonary hypertension; D64.9 Anemia, unspecified; E03.9 Hypothyroidism, unspecified
CPT/HCPCS: 36415; 80053; 80061; 84443; 85025

== ENCOUNTER → 2019-09-08 | Outpatient (CLI) | payer OTHER ==
[2019-09-08 07:23] LABS: Urine WBC None Seen /hpf (0 - 5)
[2019-09-08 07:30] LABS: Basophils # (auto) 0 10 ^3/uL (0-0.2); Basophils % (auto) 0.4 % (0.0-2.0); Eosinophils # (auto) 0.2 10 ^3/uL (0-0.8); Hematocrit 45.6 % (36.0-46.0); Hemoglobin 15.1 g/dL (12.2-16.2); Lymphocytes # (auto) 2.2 10 ^3/uL (0.4-5.4); Lymphocytes % (auto) 39.7 % (10.0-50.0); Mean Corpuscular Hemoglobin 30.1 pg (28.0-32.0); Mean Corpuscular Volume 91.2 fL (80.0-100.0); Monocytes # (auto) 0.6 10 ^3/uL (0-1.3); Monocytes % (auto) 10.3 % (0.0-12.0); Neutrophils # (auto) 2.6 10 ^3/uL (1.6-8.6); Neutrophils % (auto) 46.6 % (37.0-80.0); Nucleated Red Blood Cells % 0.1 %; Platelet Count (auto) 247 10^3/uL (140-450); Red Cell Distribution Width 13.4 % (11.8-14.3); White Blood Cell 5.5 10^3/uL (4.4-10.8)
[2019-09-08 07:36] LABS: Urine Bacteria NONE SEEN /hpf (None Seen); Urine Blood Negative /uL (Negative); Urine Specific Gravity 1.007 (1.001-1.035)
[2019-09-08 08:17] LABS: Albumin 3.5 g/dL (3.4-5.0); BUN/Creatinine Ratio 16.2; Calcium 8.9 mg/dL (8.5-10.1); Potassium 4.3 mmol/L (3.5-5.1)
[2019-09-08 08:22] LABS: Bilirubin, Total 0.5 mg/dL (0.2-1.0); Total Protein 7.1 g/dL (6.4-8.2)
[2019-09-08 09:28] LABS: Free T4 (Free Thyroxine) 1.44 ng/dL (0.89-1.76)
[2019-09-08 09:29] LABS: Folate (Folic Acid) 17.63 ng/mL (5.38-24)
== END | disposition home or self-care (01) ==
LOC: LAB 07:04
PROVIDERS: ATTEND Internal Medicine
DX: I10 Essential (primary) hypertension (principal); E03.9 Hypothyroidism, unspecified; E78.5 Hyperlipidemia, unspecified; M50.30 Other cervical disc degeneration, unspecified cervical region; Z79.899 Other long term (current) drug therapy
CPT/HCPCS: 36415; 80053; 80061; 81001; 82306; 82607; 82746; 83036; 84439; 84443; 85025

== ENCOUNTER → 2019-10-16 | Outpatient (CLI) | payer OTHER | END | disposition home or self-care (01) | LOC: LAB 07:04 | PROVIDERS: ATTEND Internal Medicine | DX: E03.9 Hypothyroidism, unspecified (principal) | CPT/HCPCS: 36415; 84439; 84443 ==

== ENCOUNTER → 2020-06-16 | Outpatient (CLI) | payer OTHER ==
[~2020-06-16] MED LIST changes: +LEVO88TA2 PO; -LEVO88TA36 PO
== END | disposition home or self-care (01) ==
LOC: XYW 07:56
PROVIDERS: ATTEND Internal Medicine
DX: I10 Essential (primary) hypertension (principal)
CPT/HCPCS: 93306

== ENCOUNTER → 2020-06-28 | Outpatient (CLI) | payer OTHER ==
[2020-06-28 08:27] LABS: Potassium 4.8 mmol/L (3.5-5.1)
[2020-06-28 08:33] LABS: Albumin 3.3 g/dL (3.4-5.0); BUN/Creatinine Ratio 17.3; Bilirubin, Total 0.5 mg/dL (0.2-1.0); Calcium 8.9 mg/dL (8.5-10.1); Total Protein 6.8 g/dL (6.4-8.2)
== END | disposition home or self-care (01) ==
LOC: LAB 07:30
PROVIDERS: ATTEND Internal Medicine
DX: I10 Essential (primary) hypertension (principal)
CPT/HCPCS: 36415; 80053

== ENCOUNTER → 2020-08-13 | Outpatient (CLI) | payer OTHER ==
[2020-08-13 07:38] LABS: Urine WBC None Seen /hpf (0 - 5)
[2020-08-13 07:46] LABS: Urine Bacteria NONE SEEN /hpf (None Seen); Urine Blood TRACE /uL (Negative); Urine Specific Gravity 1.014 (1.001-1.035)
[2020-08-13 08:06] LABS: Basophils # (auto) 0 10 ^3/uL (0-0.2); Basophils % (auto) 0.4 % (0.0-2.0); Eosinophils # (auto) 0.1 10 ^3/uL (0-0.8); Eosinophils % (auto) 1.9 % (0.0-7.0); Hematocrit 43.8 % (36.0-46.0); Hemoglobin 14.8 g/dL (12.2-16.2); Lymphocytes # (auto) 2.3 10 ^3/uL (0.4-5.4); Mean Corpuscular Hemoglobin 30.4 pg (28.0-32.0); Mean Corpuscular Hgb Conc. 33.8 g/dL (32.0-36.0); Mean Corpuscular Volume 89.9 fL (80.0-100.0); Monocytes # (auto) 0.5 10 ^3/uL (0-1.3); Monocytes % (auto) 9.1 % (0.0-12.0); Neutrophils # (auto) 2.8 10 ^3/uL (1.6-8.6); Neutrophils % (auto) 48.6 % (37.0-80.0); Nucleated Red Blood Cells % 0.2 %; Platelet Count (auto) 253 10^3/uL (140-450); Red Blood Cells 4.87 10^6/uL (4.0-5.20); Red Cell Distribution Width 13.5 % (11.8-14.3); White Blood Cell 5.7 10^3/uL (4.4-10.8)
[2020-08-13 08:16] LABS: Albumin 3.7 g/dL (3.4-5.0); Potassium 4.8 mmol/L (3.5-5.1)
[2020-08-13 08:25] LABS: BUN/Creatinine Ratio 18.5; Bilirubin, Total 0.6 mg/dL (0.2-1.0); Calcium 9.5 mg/dL (8.5-10.1); Total Protein 7.1 g/dL (6.4-8.2)
== END | disposition home or self-care (01) ==
LOC: LAB 07:22
PROVIDERS: ATTEND Internal Medicine
DX: I10 Essential (primary) hypertension (principal)
CPT/HCPCS: 36415; 80053; 80061; 81001; 82306; 84439; 84443; 85025

== ENCOUNTER 2020-09-16 15:29 | Emergency (ER) | payer OTHER ==
[~2020-09-16] VITALS: Ht 162.6 cm; Wt 57.2 kg
[2020-09-16 17:19] VITALS: BP 141/71
[2020-09-16] MEDS ORDERED: cefTRIAXone SOD 1,000 MG VL IM ONE (17:30)
[2020-09-16] MEDS ORDERED: ALBUTEROL SULF 2.5 MG/0.5ML(0.5%) NEB SOLN NEB ONE (17:30)
[2020-09-16] MEDS ORDERED: methylPREDNISolone SOD SUCC 125 MG/2 ML VL IM ONE (17:30)
[2020-09-16] MEDS ORDERED: IPRATROPIUM BROM 0.5 MG/2.5ML INH SOL NEB ONE (17:30)
== END 2020-09-16 18:40 | disposition home or self-care (01) ==
LOC: ER 15:29
DX: J20.9 Acute bronchitis, unspecified (principal); J03.90 Acute tonsillitis, unspecified; J04.0 Acute laryngitis
CPT/HCPCS: 71045; 94640; 96372; 99284; J0696; J2930; J7644

== ENCOUNTER 2020-09-17 23:32 | Emergency (ER) | payer OTHER ==
[~2020-09-17] VITALS: Ht 162.6 cm; Wt 56.7 kg
[2020-09-18 01:51] LABS: Basophils # (auto) 0 10 ^3/uL (0-0.2); Basophils % (auto) 0.2 % (0.0-2.0); Eosinophils # (auto) 0 10 ^3/uL (0-0.8); Hematocrit 38.6 % (36.0-46.0); Hemoglobin 12.9 g/dL (12.2-16.2); Lymphocytes # (auto) 2.1 10 ^3/uL (0.4-5.4); Lymphocytes % (auto) 18.4 % (10.0-50.0); Mean Corpuscular Hemoglobin 29.6 pg (28.0-32.0); Mean Corpuscular Hgb Conc. 33.3 g/dL (32.0-36.0); Mean Corpuscular Volume 88.8 fL (80.0-100.0); Monocytes # (auto) 1.1 10 ^3/uL (0-1.3); Monocytes % (auto) 9.6 % (0.0-12.0); Neutrophils # (auto) 8.3 10 ^3/uL (1.6-8.6); Neutrophils % (auto) 71.8 % (37.0-80.0); Nucleated Red Blood Cells % 0.1 %; Platelet Count (auto) 280 10^3/uL (140-450); Red Blood Cells 4.34 10^6/uL (4.0-5.20); Red Cell Distribution Width 13.1 % (11.8-14.3); White Blood Cell 11.5 10^3/uL (4.4-10.8)
[2020-09-18 02:03] LABS: Albumin 3.4 g/dL (3.4-5.0); Calcium 9.1 mg/dL (8.5-10.1); Magnesium 2.1 mg/dL (1.6-2.6); Potassium 3.6 mmol/L (3.5-5.1)
[2020-09-18 02:05] LABS: BUN/Creatinine Ratio 20.5
[2020-09-18 02:16] LABS: Bilirubin, Total 0.3 mg/dL (0.2-1.0); Total Protein 6.9 g/dL (6.4-8.2)
[2020-09-18 02:41] LABS: INR 0.99 (0.9-1.15); Partial Thromboplastin Time 25.9 sec (23.0-31.2)
[2020-09-18] MEDS ORDERED: IPRATROPIUM BROM 0.5 MG/2.5ML INH SOL NEB ONE (05:00)
[2020-09-18] MEDS ORDERED: ALBUTEROL SULF 2.5 MG/0.5ML(0.5%) NEB SOLN NEB ONE (05:00)
[2020-09-18] MEDS ORDERED: methylPREDNISolone SOD SUCC 125 MG/2 ML VL IV ONE (05:00)
[2020-09-18] MEDS ORDERED: IOHEXOL 350 MG/ML 100ML IJ ONE (05:45)
[2020-09-18] MEDS ORDERED: ASPirin 81 mg TAB PO ONE (05:45)
[2020-09-18] MEDS ORDERED: SODIUM CHLORIDE 0.9% 1,000 ML IV ONE (06:15)
[2020-09-18 08:36] VITALS: BP 144/49
== END 2020-09-18 08:35 | disposition home or self-care (01) ==
LOC: EDBD 23:32 → EDUNIT# 23:32 → ER 23:32
DX: R06.03 Acute respiratory distress (principal); I27.21 Secondary pulmonary arterial hypertension; R05 Cough; Z20.822 Contact with and (suspected) exposure to COVID-19
CPT/HCPCS: 36415; 71045; 71275; 80053; 83735; 83880; 84484; 85025; 85379; 85610; 85730; 87426; 93005; 94640; 96361; 96374; 99285; J2930; J7030; J7644; Q9967